=== PATIENT | female | born 1970 | race Caucasian/White ===

== ENCOUNTER → 2019-03-09 07:05 | Outpatient (CLI) | payer OTHER, SELFPAY ==
--- NOTE | 2019-03-09 09:51 | PM.TREADMILL ---
Cardiac Stress Test Report Referral & Results Date Patient Seen: 03/09/19 Requesting provider: Rufina Chisholm Indication: Chest discomfort Rest ECG: Unremarkable Procedure Note: Today following both written and verbal informed consent, the patient was exercised according to a standard Pradip protocol. The patient exercised for a total of 8 minutes 15 seconds achieving a maximum heart rate of 168. Patient's maximum systolic blood pressure was 220. This was an estimated 10.1 MET's. There are no ST-T segment changes Normal heart rate and blood pressure response Rare PACs are identified in recovery Functional aerobic impairment rated-18% and sedentary scale or about 0 on the active scale Impression: No evidence of ischemia. Average exercise capacity Please note: Actual ECG tracings can be found in the PACS system.
== END ==
PROVIDERS: PCP Family Medicine; Visit Provider Family Medicine
DX: R07.89 Other chest pain (principal)
CPT/HCPCS: 93016; 93017; 93018

== ENCOUNTER → 2019-09-07 11:47 | Outpatient (CLI) | payer OTHER, SELFPAY ==
--- NOTE | 2019-09-07 | DI.NM.S_ITS ---
PROCEDURE: NM PARATHYROID SPECT RADIOPHARMACEUTICAL: 25.7 mCi Tc-99m sestamibi IV. INDICATIONS: Primary hyperparathyroidism TECHNIQUE: After intravenous administration of Tc-99m sestamibi, anterior planar images of the neck and mediastinum were obtained at approximately 10 minutes and 2-3 hours. SPECT images were acquired after the 10 minute planar images. COMPARISON: None. FINDINGS: On the early images, the thyroid gland is bilobed and has normal size and morphology. There is no focal increased activity in the thyroid bed. There is no preferential retention of activity in the thyroid bed on delayed images. The SPECT images demonstrate no abnormal activity in the neck. There is a focal uptake in the left axilla. There is a focal uptake in the left axilla. IMPRESSION: 1. No definitive parathyroid adenoma is identified. 2. Focal uptake in left axilla. This could represent an enlarged axillary lymph node. Recommend correlation with findings on physical examination. If clinically indicated, chest CT may be obtained for further evaluation. Dictated by: Oc Pepe M.D. on 09/07/2019 at 16:10 Approved by: Oc Pepe M.D. on 09/07/2019 at 16:16
== END ==
PROVIDERS: Family Provider Family Medicine; PCP Family Medicine; Visit Provider Internal Medicine Endocrinology, Diabetes & Metabolism
DX: E21.0 Primary hyperparathyroidism (principal)
CPT/HCPCS: 78071; A9500